=== PATIENT | female | born 1950 ===

== ENCOUNTER 2023-02-03 09:00 | Outpatient (REF) | payer MEDICARE, SELFPAY | END 2023-02-03 09:01 | disposition home or self-care (01) | LOC: HO.SH 09:00 | PROVIDERS: Visit Provider Family Medicine | DX: H90.3 Sensorineural hearing loss, bilateral (principal) | CPT/HCPCS: 92557; 92567 ==

== ENCOUNTER 2023-02-03 10:25 | Outpatient (REF) | payer SELFPAY | END 2023-02-03 10:26 | disposition home or self-care (01) | LOC: HO.HAP 10:25 | PROVIDERS: Visit Provider Family Medicine | DX: Z46.1 Encounter for fitting and adjustment of hearing aid (principal); H90.3 Sensorineural hearing loss, bilateral | CPT/HCPCS: V5267 ==